=== PATIENT | female | born 1965 | race Caucasian/White ===

== ENCOUNTER 2019-11-12 13:04 | Emergency (ER) | payer MEDICARE ==
[2019-11-12 13:28] VITALS: BP 144/82; PULSE 60; O2SAT 96
[2019-11-12] MEDS ORDERED: Xylocaine 5% OINTMENT TP ONE ×2 (13:28→14:15)
[2019-11-12] MEDS ORDERED: Norco 10/325 MG Tablet PO ONE (13:28)
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
[2019-11-12] MEDS ORDERED: Norco 10/325 MG Tablet ONE (13:52)
[2019-11-12] MEDS ORDERED: XYLOCAINE 4% TOPICAL SOLUTION 50 ML ONE (13:53)
[2019-11-12] MEDS ORDERED: XYLOCAINE 4% TOPICAL SOLUTION 50 ML TOP ONE (13:56)
== END 2019-11-12 14:14 | disposition home or self-care (01) ==
LOC: ED 13:04
DX: T54.3X1A Toxic effect of corrosive alkalis and alkali-like substances, accidental (unintentional), initial encounter (principal); T21.67XA Corrosion of second degree of female genital region, initial encounter; T79.9XXA Unspecified early complication of trauma, initial encounter; Y93.89 Activity, other specified; Y92.9 Unspecified place or not applicable; R10.2 Pelvic and perineal pain; R21 Rash and other nonspecific skin eruption
CPT/HCPCS: 99283; A9270-GY